=== PATIENT | female | born 1955 | race Caucasian/White ===

== ENCOUNTER 2016-10-07 07:04 | Emergency (ER) | payer BC ==
[2016-10-07] MEDS ORDERED: NORMAL SALINE 1000 ML 1,000 ML IV ONE (08:37)
[2016-10-07] MEDS ORDERED: KETOROLAC TROMETHAMINE INJ/PF 30 MG/1 ML SDV IV ONE (08:39)
[2016-10-07] MEDS ORDERED: DIPHENHYDRAMINE HCL 50 MG/ML VIAL IV ONE (08:39)
[2016-10-07] MEDS ORDERED: PROCHLORPERAZINE EDISYLATE INJ 10 MG/2 ML VIAL IV ONE (08:39)
--- NOTE | 2016-10-07 08:50 | ER Document Report ---
ED Headache - General Chief Complaint: Headache >24 hrs old Stated Complaint: HEAD PAIN Time seen by provider: 08:44 Mode of Arrival: Ambulatory Information source: Patient Notes: Extremity 1-year-old female presents to ED for migraine headache states she has had multiple migraine headaches in the past and this one has lasted 4 days. TRAVEL OUTSIDE OF THE [place] IN LAST 30 DAYS: No - HPI Patient complains to provider of: "Migraine" Patient reports: Hx chronic headaches Onset was: Gradual Timing: Still present Quality of pain: Sharp Pain Level: 5 Exacerbated by: Light, Noise, Movement, Position Similar symptoms previously: Yes Recently seen / treated by doctor: No - Related Data Allergies/Adverse Reactions: No Known Allergies Allergy (Verified 08/04/16 10:58) Past Medical History - General Information source: Patient - Social History Smoking Status: Current Every Day Smoker Cigarette use (# per day): Yes - pack per day Chew tobacco use (# tins/day): No Smoking Education Provided: Yes - acetaminophen Frequency of alcohol use: None Drug Abuse: None Occupation: housekeeping Lives with: Family Family History: Reviewed & Not Pertinent Patient has suicidal ideation: No Patient has homicidal ideation: No - Past Medical History Cardiac Medical History: Reports: None Pulmonary Medical History: Reports: None Neurological Medical History: Reports: None, Hx Migraine Endocrine Medical History: Reports: None Renal/ Medical History: Reports: None Malignancy Medical History: Reports: None GI Medical History: Reports: None, Other - Fibroid uterus Musculoskeltal Medical History: Reports Hx Arthritis Skin Medical History: Reports None Psychiatric Medical History: Reports: None Traumatic Medical History: Reports: None Past Surgical History: Reports: Hx Cholecystectomy, Hx Gynecologic Surgery - Fibroids removed from uterus - Immunizations Hx Diphtheria, Pertussis, Tetanus Vaccination: No Review of Systems - Review of Systems Constitutional: No symptoms reported EENT: No symptoms reported Cardiovascular: No symptoms reported Respiratory: No symptoms reported Gastrointestinal: No symptoms reported Genitourinary: No symptoms reported Female Genitourinary: No symptoms reported Musculoskeletal: No symptoms reported Skin: No symptoms reported Hematologic/Lymphatic: No symptoms reported Neurological/Psychological: Headaches -: Yes All other systems reviewed and negative Physical Exam - Vital signs Vitals: Temp Pulse Resp BP Pulse Ox 97.8 F 83 16 144/92 H 98 10/07/16 08:34 10/07/16 08:34 10/07/16 08:34 10/07/16 08:34 10/07/16 08:34 Interpretation: Normal - General General appearance: Appears well, Alert - HEENT Head: Normocephalic, Atraumatic Eyes: Normal Pupils: PERRL Visual whalen normal: Yes Ears: Normal External canal: Normal Tympanic membrane: Normal Sinus: Normal Nasal: Normal, Other Mouth/Lips: Normal Mucous membranes: Normal Pharynx: Normal Neck: Normal - Respiratory Respiratory status: No respiratory distress Chest status: Nontender Breath sounds: Normal Chest palpation: Normal - Cardiovascular Rhythm: Regular Heart sounds: Normal auscultation Murmur: No - Abdominal Inspection: Normal Distension: No distension Bowel sounds: Normal Tenderness: Nontender Organomegaly: No organomegaly - Back Back: Normal, Nontender - Extremities General upper extremity: Normal inspection, Nontender, Normal color, Normal ROM , Normal temperature General lower extremity: Normal inspection, Nontender, Normal color, Normal ROM , Normal temperature, Normal weight bearing. No: Analisa's sign - Neurological Neuro grossly intact: Yes Cognition: Normal Orientation: AAOx4 Heather Coma Scale Eye Opening: Spontaneous [place] Coma Scale Verbal: Oriented [place] Coma Scale Motor: Obeys Commands [place] Coma Scale Total: 15 Speech: Normal Motor strength normal: LUE, RUE, LLE, RLE Sensory: Normal - Psychological Associated symptoms: Normal affect, Normal mood - Skin Skin Temperature: Warm Skin Moisture: Dry Skin Color: Normal Course - Vital Signs Vital signs: Temp Pulse Resp BP Pulse Ox 98.1 F 54 L 18 124/60 96 10/07/16 11:24 10/07/16 11:24 10/07/16 11:24 10/07/16 11:24 10/07/16 11:24 Discharge - Discharge Clinical Impression: Headache Qualifiers: Headache type: unspecified Headache chronicity pattern: unspecified pattern Intractability: not intractable Qualified Code(s): R51 - Headache Disposition: HOME, SELF-CARE Instructions: Family Physicians / Practices Additional Instructions: HEADACHE: The physician does not feel that the headache you are experiencing has a serious underlying cause. Most headaches are due to emotional stress, with resultant muscle tension (tension headache). Occasionally, headaches are secondary to changes in the blood vessels of the scalp (vascular headache and migraine headache). Sometimes, a headache is the first symptom of another developing illness, such as a viral infection. You have no evidence of stroke, bleeding, meningitis, or other serious cause of your headache. The treatment of headaches varies with the severity and cause of the pain. Not all headaches need pain shots. In fact, there is evidence that using narcotics for headaches may make them worse in the long run. The physician will determine the therapy that's in your best interest. If you develop a fever, if the headache is different from any you've previously experienced, or if the headache progressively worsens, then call your physician at once or go to the emergency room. USE OF DIPHENHYDRAMINE: Diphenhydramine (Benadryl) is an antihistamine and has been recommended to help treat your headache and to prevent side effects of other medications used to treat headaches. The medication can be repeated four times daily. Age Elixir (12.5 mg/tsp) 25 mg pill adult 1-2 tabs Antihistamines may cause drowsiness, especially with the first dose. Do not operate machinery or drive while under the effects of the medication. Do not combine the medication with alcohol, or with any other medication without talking to your doctor. INTRAVENOUS COMPAZINE FOR HEADACHE: You have received therapy for headaches, using intravenous Compazine. This treatment is dramatically successful in relieving the headache in about 50 percent of cases. When it works, it provides a rapid method of eliminating the headache without resorting to narcotics (and the problems associated with them). Most patients still feel fully alert after the Compazine, but others may be slightly drowsy. It's best not to drive or work with machinery for six to eight hours. Do not take alcohol or other medication unless you discuss it with the doctor. If you develop tightness and spasms in your muscles, especially the neck and tongue, you should return. This is a side effect which can be treated. TORADOL INJECTION: You have been given an injection of ketorolac tromethamine (Toradol). This is an excellent, safe drug for pain control. It also has potent antiinflammatory action. You should have significant pain relief within about one hour. Toradol is not addicting and is non-sedating. It does not interfere with driving or work. Call or return if you develop itching, hives, shortness of breath, or rash. FOLLOW-UP CARE: If you have been referred to a physician for follow-up care, call the physician s office for an appointment as you were instructed or within the next two days. If you experience worsening or a significant change in your symptoms, notify the physician immediately or return to the Emergency Department at any time for re-evaluation. Prescriptions: Butalbit/Acetamin/Caff/Codeine [Fioricet-Cod 86-075-58-30 Cap] 1 cap PO Q6 PRN # 40 cap PRN Reason: Forms: Elevated Blood Pressure, Smoking Cessation Education
[2016-10-07 11:27] VITALS: BP 124/60
== END 2016-10-07 11:24 | disposition home or self-care (01) ==
LOC: ER 07:04
DX: R51 Headache (principal); F17.210 Nicotine dependence, cigarettes, uncomplicated; Z90.49 Acquired absence of other specified parts of digestive tract
CPT/HCPCS: 99283; 96361; 96374; 96375; J1200; J1885; J0780; J7030

== ENCOUNTER 2019-08-08 16:00 | Inpatient (IN) | payer SELFPAY ==
[2019-08-08] MEDS ORDERED: IPRATROPIUM/ALBUTEROL 0.5-2.5 MG/3 ML AMPUL NEB ONE ×2 (16:31→17:13)
--- NOTE | 2019-08-08 16:33 | ER Document Report ---
ED Medical Screen (RME) - General Chief Complaint: Breathing Difficulty Stated Complaint: DIFFICULTY BREATHING Time Seen by Provider: 08/08/19 16:27 Mode of Arrival: Ambulatory Information source: Patient Notes: 64-year-old patient with history of smoking presents emergency department with shortness of breath cough for 1 week. Reports back hurts from coughing so much. Denies fever vomiting. Patient is very short of breath when talking. Patient reports she gets short of breath walking outside and back. Denies peripheral swelling. Denies history of cardiac disease. Denies chest pain. Positive rhonchi and wheeze. O2 sat 89%. I have greeted and performed a rapid initial assessment of this patient. A comprehensive ED assessment and evaluation of the patient, analysis of test results and completion of the medical decision making process will be conducted by additional ED providers. Dictation of this chart was performed using voice recognition software; therefore, there may be some unintended grammatical errors. TRAVEL OUTSIDE OF THE [place] IN LAST 30 DAYS: No - Related Data Allergies/Adverse Reactions: No Known Allergies Allergy (Verified 08/04/16 10:58) Past Medical History - Social History Frequency of alcohol use: None Drug Abuse: None - Past Medical History Cardiac Medical History: Denies: Hx Heart Attack, Hx Hypertension Pulmonary Medical History: Denies: Hx Asthma, Hx Bronchitis, Hx COPD, Hx Pneumonia Neurological Medical History: Reports: Hx Migraine. Denies: Hx Seizures Renal/ Medical History: Denies: Hx Peritoneal Dialysis Musculoskeltal Medical History: Reports Hx Arthritis Past Surgical History: Reports: Hx Cholecystectomy, Hx Gynecologic Surgery - Fibroids removed from uterus - Immunizations Hx Diphtheria, Pertussis, Tetanus Vaccination: No Physical Exam - Vital signs Vitals: Temp Pulse BP Pulse Ox 97.5 F 86 154/91 H 90 L 08/08/19 16:03 08/08/19 16:03 08/08/19 16:03 08/08/19 16:03 Course - Vital Signs Vital signs: Temp Pulse Resp BP Pulse Ox 97.5 F 86 154/91 H 89 L 08/08/19 16:03 08/08/19 16:03 08/08/19 16:03 08/08/19 16:29
--- NOTE | 2019-08-08 16:57 | RADIOLOGY REPORT (SQ) ---
EXAM DESCRIPTION: CHEST 2 VIEWS COMPLETED DATE/TIME: 08/08/2019 4:44 pm REASON FOR STUDY: cough sob COMPARISON: 05/14/2010 EXAM PARAMETERS: NUMBER OF VIEWS: two views TECHNIQUE: Digital Frontal and Lateral radiographic views of the chest acquired. RADIATION DOSE: NA LIMITATIONS: none FINDINGS: LUNGS AND PLEURA: No opacities, masses or pneumothorax. No pleural effusion. MEDIASTINUM AND HILAR STRUCTURES: No masses or contour abnormalities. HEART AND VASCULAR STRUCTURES: Heart normal size. No evidence for failure. BONES: No acute findings. HARDWARE: None in the chest. OTHER: No other significant finding. IMPRESSION: NO ACUTE RADIOGRAPHIC FINDING IN THE CHEST. TECHNICAL DOCUMENTATION: JOB ID: [id number] [employer]- All Rights Reserved Reading location - IP/workstation name: [email or web address]
[2019-08-08] MEDS ORDERED: METHYLPREDNISOLONE INJ 125 MG/2 ML SDV IV ONE (17:13)
[2019-08-08 17:30] LABS: ABSOLUTE EOSINOPHILS # (AUTO) 0.3 10^3/uL (0.0-0.6); ABSOLUTE MONOCYTES (AUTO) 0.5 10^3/uL (0.1-1.4); ABSOLUTE NEUT (AUTO) 4.6 10^3/uL (1.7-8.2); BASOPHILS % (AUTO) 0.6 % (0-2); EOSINOPHILS % (AUTO) 4.1 % (0-6); HEMATOCRIT 44.1 % (36.0-47.0); LYMPHOCYTES % (AUTO) 27.5 % (13-45); MEAN CORPUSCULAR HEMOGLOBIN 30.5 pg (27.0-33.4); MEAN CORPUSCULAR VOLUME 90 fl (80-97); MONOCYTES % (AUTO) 6.2 % (3-13); PLATELET COUNT 341 10^3/uL (150-450); RED BLOOD COUNT 4.92 10^6/uL (3.72-5.28); RED CELL DISTRIBUTION WIDTH 13.2 % (11.5-14.0); SEGMENTED NEUTROPHILS % (AUTO) 61.6 % (42-78); TOTAL CELLS COUNTED % (AUTO) 100 %; WHITE BLOOD COUNT 7.4 10^3/uL (4.0-10.5)
[2019-08-08 17:48] LABS: ALBUMIN 4.6 g/dL (3.5-5.0); ALKALINE PHOSPHATASE 110 U/L (38-126); ANION GAP 13 (5-19); ASPARTATE AMINO TRANSFERASE 31 U/L (14-36); BILIRUBIN,DIRECT 0.1 mg/dL (0.0-0.4); BILIRUBIN,TOTAL 0.3 mg/dL (0.2-1.3); BLOOD UREA NITROGEN 14 mg/dL (7-20); CALCIUM 9.9 mg/dL (8.4-10.2); CARBON DIOXIDE 24 mmol/L (22-30); CHLORIDE 107 mmol/L (98-107); GLUCOSE 102 mg/dL (75-110); POTASSIUM 4.2 mmol/L (3.6-5.0); TOTAL PROTEIN 8.3 g/dL (6.3-8.2)
[2019-08-08] MEDS ORDERED: ALBUTEROL SULFATE 0.083% NEB 2.5 MG/3 ML AMPUL NEB ONE ×2 (19:44)
--- NOTE | 2019-08-08 20:18 | ER Document Report ---
ED General - General Chief Complaint: Breathing Difficulty Stated Complaint: DIFFICULTY BREATHING Time Seen by Provider: 08/08/19 16:27 Mode of Arrival: Ambulatory Notes: 64 year old female presents to the ED complaining of a one-week history of productive cough, shortness of breath, wheezing, sweats and chills and diarrhea with associated abdominal cramping. Denies any chest pain. States that she is never had symptoms like this before. Denies any history of COPD or asthma. Her grandson that she saw 1 week ago at a wedding 7 hours away had identical symptoms. TRAVEL OUTSIDE OF THE [place] IN LAST 30 DAYS: No - Related Data Allergies/Adverse Reactions: No Known Allergies Allergy (Verified 08/04/16 10:58) Past Medical History - General Information source: Patient - Social History Smoking Status: Current Every Day Smoker Frequency of alcohol use: None Drug Abuse: None Family History: Reviewed & Not Pertinent Patient has suicidal ideation: No Patient has homicidal ideation: No - Past Medical History Cardiac Medical History: Denies: Hx Heart Attack, Hx Hypertension Pulmonary Medical History: Denies: Hx Asthma, Hx Bronchitis, Hx COPD, Hx Pneumonia Neurological Medical History: Reports: Hx Migraine. Denies: Hx Seizures Renal/ Medical History: Denies: Hx Peritoneal Dialysis Musculoskeletal Medical History: Reports Hx Arthritis Past Surgical History: Reports: Hx Cholecystectomy, Hx Gynecologic Surgery - Fibroids removed from uterus - Immunizations Hx Diphtheria, Pertussis, Tetanus Vaccination: No Review of Systems - Review of Systems Constitutional: See HPI EENT: No symptoms reported Cardiovascular: No symptoms reported Respiratory: See HPI Gastrointestinal: See HPI -: Yes All other systems reviewed and negative Physical Exam - Vital signs Vitals: Temp Pulse BP Pulse Ox 97.5 F 86 154/91 H 90 L 08/08/19 16:03 08/08/19 16:03 08/08/19 16:03 08/08/19 16:03 Interpretation: Hypertensive, Hypoxic - Notes Notes: GENERAL: Alert, interacts well. Speaking in 4-5 word sentences, appears short of breath, using some accessory muscles of respiration. HEAD: Normocephalic, atraumatic EYES: Pupils equal, round and reactive to light, extraocular movements intact. ENT: Oral mucosa moist, tongue midline. NECK: Full range of motion, supple, trachea midline. LUNGS: Diffuse expiratory wheezing, some inspiratory wheezing, tachypneic, appears short of breath, using accessory muscles of respiration. HEART: Regular rate and rhythm, no murmurs, gallops, rubs. ABDOMEN: Soft, nontender, nondistended, bowel sounds present in all 4 quadrants. EXTREMITIES: Moves all 4 extremities spontaneously, no edema, radial and dorsalis pedis pulses 2/4 bilaterally. No cyanosis. NEUROLOGICAL: Alert and oriented x3, normal speech, biceps and patellar DTRs 2+ bilaterally. PSYCH: Normal mood, normal affect. SKIN: Warm, Dry, normal turgor, no rashes or lesions noted. Course - Re-evaluation Re-evalutation: 08/08/19 20:24 CBC unremarkable, CMP unremarkable, chest x-ray shows no acute process. Patient was given steroids and 3 DuoNeb's. Patient continues to be hypoxic, on room air she is 89%, on 2 L she sits at 92% unless she is talking. I will try 2 more doses of albuterol and if this does not improve she will be admitted. 08/08/19 21:19 After 2 more doses of albuterol patient still requires 4 L via nasal cannula to maintain oxygen saturation at 91% while sitting in the bed. She still has coarse breath sounds and mild wheezing. She does have some improvement. Patient will be started on BiPAP and discussed with the hospitalist for possible admission. Patient has already been given steroids. 08/08/19 21:39 Dr. Powers will call me back as he is in the middle of emergent patient care at this time. 08/08/19 21:59 Dr. Powers has accepted the patient under his orders I have adjusted the BiPAP to 16/8 at 30%. Patient is tolerating this well. - Vital Signs Vital signs: Temp Pulse Resp BP Pulse Ox 98.4 F 86 21 H 129/68 H 92 08/08/19 19:51 08/08/19 16:03 08/08/19 20:01 08/08/19 20:01 08/08/19 20:01 - Laboratory Result Diagrams: 08/08/19 17:01 08/08/19 17:01 Laboratory results interpreted by me: 08/08/19 17:01 Total Protein 8.3 H Critical Care Note - Critical Care Note Total time excluding time spent on procedures (mins): 45 Discharge - Discharge Clinical Impression: Acute respiratory failure with hypoxia Condition: Fair Disposition: ADMITTED INPATIENT Admitting Provider: Priya (Hospitalist) Unit Admitted: Medical Floor
[2019-08-08] MEDS: HEPARIN SOD (PORCINE) 5,000 UNIT/ML 1 ML VIAL SUBCUT SCH (22:31)
[2019-08-08] MEDS ORDERED: LEVALBUTEROL HCL NEB 0.63 MG/3 ML AMPUL NEB PRN (22:34)
[2019-08-08] MEDS ORDERED: NALBUPHINE HCL INJ 10 MG/1 ML AMPULE IV PRN ×3 (22:34→22:47)
[2019-08-08] MEDS ORDERED: NICOTINE 21 MG/24 HR PATCH.TD24 TD PRN (22:34)
[2019-08-08] MEDS ORDERED: IBUPROFEN 800 MG TABLET PO PRN (22:34)
[2019-08-08] MEDS ORDERED: MAGNESIUM HYDROXIDE SUSP 30 ML UDCUP PO PRN (22:34)
[2019-08-08] MEDS ORDERED: MAG HYDROX/AL HYDROX/SIMETH SUSP 30 ML UDCUP PO PRN (22:34)
[2019-08-08] MEDS ORDERED: LEVOFLOXACIN 750 MG TABLET PO SCH (22:36)
[2019-08-08] MEDS ORDERED: PROMETHAZINE HCL INJ 25 MG/1 ML VIAL IV PRN (22:38)
[2019-08-08] MEDS ORDERED: ZOLPIDEM TARTRATE 5 MG TABLET PO PRN (22:38)
[2019-08-08] MEDS ORDERED: FAMOTIDINE 20 MG TABLET PO SCH (22:45)
[2019-08-08] MEDS ORDERED: LEVOFLOXACIN 750 MG TABLET PO ONE (23:10)
[2019-08-08] MEDS ORDERED: FAMOTIDINE 20 MG TABLET PO ONE (23:15)
[2019-08-09] MEDS: LEVALBUTEROL HCL NEB 1.25 MG/3 ML AMPUL NEB SCH ×4 (00:15→23:42)
[2019-08-09] MEDS: IPRATROPIUM BROMIDE 0.02% NEB 0.5 MG/2.5 ML AMPUL NEB SCH ×4 (00:15→23:42)
[2019-08-09] MEDS: METHYLPREDNISOLONE INJ 40 MG/1 ML SDV IV SCH ×3 (00:32→13:04)
--- NOTE | 2019-08-09 01:44 | PDOC H&P ---
History of Present Illness Admission Date/PCP: 08/08/2019 22:00 No local PCP Patient complains of: Dyspnea History of Present Illness: MORRIS ROSALES is a 64 year old female who presented to the emergency room with a one-week history of dyspnea. Patient reports progressively worsening dyspnea over the last week that has become severe over the last 24 hours to the point where she has difficulty speaking due to her dyspnea. Her dyspnea has been accompanied by a frequent nonproductive/minimally productive paroxysmal cough, back pain secondary to cough, wheezing, markedly increased dyspnea with diaphoresis on exertion and episodes of chills. She admits he accompanying symptom of intermittent diarrhea with abdominal cramping over the last several days. She denies other associated or accompanying signs and symptoms. She denies prior similar episodes. She has not identified any additional aggravating or ameliorating factors for her dyspnea. In the emergency room she was noted to have an O2 sat of 89% and markedly increased work of breathing resulting in her being treated with BiPAP. The entirety of her laboratory and x-ray evaluation evaluation was unremarkable. She was subsequently admitted to the hospital for further evaluation and treatment. Past Medical History Cardiac Medical History: Denies: Atrial Fibrillation, Congestive Heart Failure, Coronary Artery Disease, DVT, Myocardial Infarction, Hyperlipidema, Hypertension, Pulmonary Embolism Pulmonary Medical History: Denies: Asthma, Bronchitis, Chronic Obstructive Pulmonary Disease (COPD), Pneumonia, Respiratory Failure EENT Medical History: Denies: Cataracts, Ears - Hearing aids, Nose - Allergic rhinitis Neurological Medical History: Reports: Migraine Denies: Hemorrhagic CVA, Ischemic CVA, Seizures Endocrine Medical History: Reports: Obesity Denies: Diabetes Mellitus Type 1, Diabetes Mellitus Type 2, Hyperthyroidism, Hypothyroidism Renal/ Medical History: Denies: Chronic Kidney Disease, Nephrolithiasis Malignancy Medical History: Reports: None GI Medical History: Denies: Cirrhosis, Crohn's Disease, Hepatitis, Ulcerative Colitis Musculoskeltal Medical History: Reports: Arthritis Denies: Fibromyalgia, Gout Skin Medical History: Denies: Eczema, Psoriasis Psychiatric Medical History: Reports: Tobacco Dependency Denies: Alcohol Dependency, Substance Abuse Traumatic Medical History: Reports: None Hematology: Denies: Anemia, Bleeding Tendencies Infectious Medical History: Reports: None Past Surgical History Past Surgical History: Reports: Cholecystectomy Social History Information Source: Patient Smoking Status: Current Every Day Smoker Electronic Cigarette use?: No Frequency of Alcohol Use: None Hx Recreational Drug Use: No Drugs: None Hx Prescription Drug Abuse: No - Advance Directive Resuscitation Status: Full Code Surrogate healthcare decision maker:: Marcos Rosales Family History Family History: DM, Hypertension, Malignancy, Other - Asthma. denies: CAD Parental Family History Reviewed: Yes Children Family History Reviewed: No Sibling(s) Family History Reviewed.: Yes Medication/Allergy Home Medications: No Home Medications 1 09/15/12 Butalbit/Acetamin/Caff/Codeine [Fioricet-Cod 68-013-63-30 Cap] 1 cap PO Q6 PRN #40 cap 10/07/16 Allergies/Adverse Reactions: No Known Allergies Allergy (Verified 08/04/16 10:58) Review of Systems Constitutional: PRESENT: as per HPI, chills. ABSENT: fever(s) Eyes: ABSENT: visual disturbances, other - Eye pain Ears: ABSENT: hearing changes, other - Ear pain Nose, Mouth, and Throat: ABSENT: headache(s), mouth pain, sore throat Cardiovascular: PRESENT: as per HPI, dyspnea on exertion. ABSENT: chest pain, edema, orthropnea, palpitations Respiratory: PRESENT: as per HPI, cough, dyspnea, sputum. ABSENT: hemoptysis Gastrointestinal: PRESENT: as per HPI, abdominal pain, diarrhea. ABSENT: constipation, nausea, vomiting Genitourinary: ABSENT: dysuria, hematuria Musculoskeletal: PRESENT: as per HPI, back pain. ABSENT: joint swelling, muscle weakness Integumentary: ABSENT: pruritus, rash Neurological: ABSENT: confusion, convulsions, focal weakness, memory loss, syncope Psychiatric: ABSENT: anxiety, depression Endocrine: ABSENT: cold intolerance, heat intolerance Hematologic/Lymphatic: ABSENT: easy bleeding, easy bruising Allergic/Immunologic: ABSENT: seasonal rhinorrhea Physical Exam Vital Signs: Temp Pulse Resp BP Pulse Ox 98.4 F 86 21 H 129/68 H 92 08/08/19 19:51 08/08/19 16:03 08/08/19 20:01 08/08/19 20:01 08/08/19 20:01 Intake & Output 08/06/19 08/07/19 08/08/19 23:59 23:59 23:59 Weight 99.6 kg General appearance: PRESENT: no acute distress, cooperative, obese, other - On BiPAP Head exam: PRESENT: atraumatic, normocephalic Eye exam: PRESENT: conjunctiva pink. ABSENT: conjunctival injection, scleral icterus Ear exam: PRESENT: normal external ear exam. ABSENT: bleeding, drainage Mouth exam: PRESENT: dry mucosa, neck supple Neck exam: ABSENT: thyromegaly, tracheal deviation Respiratory exam: PRESENT: decreased breath sounds - Mildly decreased breath sounds throughout all whalen, prolonged expiratory phas - Mildly prolonged expiratory phase in all whalen, rhonchi - Scattered coarse rhonchi in all whalen, symmetrical, wheezes - Moderate expiratory wheezing, other - On BiPAP. ABSENT: rales Cardiovascular exam: PRESENT: RRR. ABSENT: clicks, gallop, rubs Pulses: PRESENT: normal radial pulses, normal dorsalis pedis pul Vascular exam: PRESENT: normal capillary refill. ABSENT: pallor GI/Abdominal exam: PRESENT: normal bowel sounds, soft Rectal exam: PRESENT: deferred Extremities exam: ABSENT: joint swelling, pedal edema Musculoskeletal exam: ABSENT: deformity, dislocation Neurological exam: PRESENT: alert, oriented to person, oriented to place, oriented to time, oriented to situation, CN II-XII grossly intact. ABSENT: motor sensory deficit Psychiatric exam: PRESENT: appropriate affect, normal mood Skin exam: PRESENT: dry, intact, warm. ABSENT: jaundice, rash, urticaria Results Laboratory Results: 08/08/19 17:01 08/08/19 17:01 08/08/19 08/08/19 17:01 17:01 WBC 7.4 RBC 4.92 Hgb 15.0 Hct 44.1 MCV 90 MCH 30.5 MCHC 34.0 RDW 13.2 Plt Count 341 Seg Neutrophils % 61.6 Sodium 143.6 Potassium 4.2 Chloride 107 Carbon Dioxide 24 Anion Gap 13 BUN 14 Creatinine 0.78 Est GFR ( Amer) > 60 Glucose 102 Calcium 9.9 Total Bilirubin 0.3 AST 31 Alkaline Phosphatase 110 Total Protein 8.3 H Albumin 4.6 Impressions: Chest X-Ray 08/08/19 16:31 IMPRESSION: NO ACUTE RADIOGRAPHIC FINDING IN THE CHEST. Assessment and Plan - Diagnosis (1) Acute exacerbation of chronic obstructive airways disease Is this a current diagnosis for this admission?: Yes (2) Acute respiratory failure with hypoxia Is this a current diagnosis for this admission?: Yes (3) Back pain Qualifiers: Chronicity: acute Back pain laterality: unspecified Sciatica presence: without sciatica Is this a current diagnosis for this admission?: Yes (4) Cough Is this a current diagnosis for this admission?: Yes (5) Obesity (BMI 30-39.9) Is this a current diagnosis for this admission?: Yes (6) Tobacco use disorder, severe, dependence Is this a current diagnosis for this admission?: Yes - Plan Summary Summary: The patient is admitted to the medical floor where she will receive the usual symptomatic and supportive cares. She will be treated with an aggressive pulmonary toilet utilizing Xopenex, Atrovent and Pulmicort delivered via nebuli zer therapy. She will receive a short course of IV steroids utilizing Solu- Medrol. She will receive supplemental oxygen initially using BiPAP to maintain an adequate O2 saturation. Her back pain will be treated with Nubain 5 to 10 mg IV every 3 hours on an as-needed basis using a sliding scale for pain. A dietary consultation will be obtained to aid the patient in an appropriate diet for weight loss. Smoking cessation is advised and counseled briefly at the bedside. A nicotine replacement patch is available for the patient's use, if desired. Her cough will be treated with Robitussin on a as needed basis. - Time Time Spent with patient: 25-34 minutes Smoking Cessation Education: 3 to 10 minutes Medications reviewed and adjusted accordingly: Yes Anticipated discharge: Home - Inpatient Certification Based on my medical assessment, after consideration of the patient's comorbidities, presenting symptoms, or acuity I expect that the services needed warrant INPATIENT care.: Yes I certify that my determination is in accordance with my understanding of Medicare's requirements for reasonable and necessary INPATIENT services [42 CFR 412.3e].: Yes Medical Necessity: Need Close Monitoring Due to Risk of Patient Decompensation, Need for Nebulizer Therapy and Monitoring of Response, Need for Pain Control, Risk of Complication if Not Cared For in Hospital
[2019-08-09] MEDS: ACETAMINOPHEN 325 MG TABLET PO PRN ×2 (02:19→21:01)
[2019-08-09] MEDS: HEPARIN SOD (PORCINE) 5,000 UNIT/ML 1 ML VIAL SUBCUT SCH ×3 (05:16→21:02)
[2019-08-09 05:41] LABS: HEMOGLOBIN 13.5 g/dL (12.0-15.5); MEAN CORPUSCULAR HGB CONC 34.7 g/dL (32.0-36.0); MEAN CORPUSCULAR VOLUME 89 fl (80-97); PLATELET COUNT 314 10^3/uL (150-450); RED BLOOD COUNT 4.36 10^6/uL (3.72-5.28); RED CELL DISTRIBUTION WIDTH 13.2 % (11.5-14.0); WHITE BLOOD COUNT 6.9 10^3/uL (4.0-10.5)
[2019-08-09 06:11] LABS: ANION GAP 17 (5-19); BLOOD UREA NITROGEN 12 mg/dL (7-20); CALCIUM 9.5 mg/dL (8.4-10.2); CARBON DIOXIDE 20 mmol/L (22-30); CHLORIDE 106 mmol/L (98-107); GLUCOSE 162 mg/dL (75-110); POTASSIUM 3.8 mmol/L (3.6-5.0)
--- NOTE | 2019-08-09 07:40 | EKG REPORT ---
SEVERITY:- BORDERLINE ECG - SINUS RHYTHM BORDERLINE INFERIOR Q WAVES : Confirmed by: Mati Smith MD 09-Aug-2019 07:39:21
[2019-08-09] MEDS: BUDESONIDE NEB 0.5 MG/2 ML AMPUL NEB SCH ×2 (08:09→20:45)
[2019-08-09] MEDS: FAMOTIDINE 20 MG TABLET PO SCH ×2 (09:55→21:02)
[2019-08-09] MEDS: DOCUSATE SODIUM 100 MG CAPSULE PO SCH ×2 (09:55→17:33)
[2019-08-09 12:26] LABS: FREE T3 2.73 pg/mL (2.77-5.27); FREE T4 (FREE THYROXINE) 1.1 ng/dL (0.78-2.19)
--- NOTE | 2019-08-09 17:05 | PDOC PROGRESS REPORT ---
Subjective Progress Note for:: 08/09/19 Subjective:: This is a 65-year-old female who presented to [facility]. She was noted to be hypoxic on presentation. She was reportedly having bilateral wheezing. She was admitted and treated for possible COPD exacerbation. She denies a prior diagnosis of COPD but does admit to smoking at least a pack a day for more than 30 years. She was placed on BiPAP. Upon encounter, patient is saturating well on BiPAP. She says that her shortness of breath has improved. She has minimal wheezing bilaterally. She denies chest pain. Reason For Visit: ACUTE EXACERBATION OF COPD,ACUTE RESPIRATORY Physical Exam Vital Signs: Temp Pulse Resp BP Pulse Ox 97.9 F 68 20 150/85 H 93 08/09/19 05:15 08/09/19 08:13 08/09/19 16:01 08/09/19 16:01 08/09/19 16:01 Intake & Output 08/08/19 08/09/19 08/10/19 06:59 06:59 06:59 Weight 219 lb 9.286 oz General appearance: PRESENT: no acute distress, well-developed, well-nourished Head exam: PRESENT: atraumatic, normocephalic Eye exam: PRESENT: conjunctiva pink, EOMI, PERRLA. ABSENT: scleral icterus Ear exam: PRESENT: normal external ear exam Mouth exam: PRESENT: moist, tongue midline Neck exam: ABSENT: carotid bruit, JVD, lymphadenopathy, thyromegaly Respiratory exam: PRESENT: rhonchi, wheezes. ABSENT: rales Cardiovascular exam: PRESENT: RRR. ABSENT: diastolic murmur, rubs, systolic murmur Pulses: PRESENT: normal dorsalis pedis pul GI/Abdominal exam: PRESENT: normal bowel sounds, soft. ABSENT: distended, guarding, mass, organolmegaly, rebound, tenderness Rectal exam: PRESENT: deferred Extremities exam: PRESENT: full ROM. ABSENT: calf tenderness, clubbing, pedal edema Neurological exam: PRESENT: alert, awake, oriented to person, oriented to place, oriented to time, oriented to situation, CN II-XII grossly intact. ABSENT: motor sensory deficit Results Laboratory Results: 08/09/19 04:11 08/09/19 04:11 08/08/19 08/08/19 08/09/19 17:01 17:01 04:11 WBC 7.4 6.9 RBC 4.92 4.36 Hgb 15.0 13.5 Hct 44.1 39.0 MCV 90 89 MCH 30.5 31.0 MCHC 34.0 34.7 RDW 13.2 13.2 Plt Count 341 314 Seg Neutrophils % 61.6 Sodium 143.6 Potassium 4.2 Chloride 107 Carbon Dioxide 24 Anion Gap 13 BUN 14 Creatinine 0.78 Est GFR ( Amer) > 60 Glucose 102 Calcium 9.9 Total Bilirubin 0.3 AST 31 Alkaline Phosphatase 110 Total Protein 8.3 H Albumin 4.6 TSH Free T4 Free T3 pg/mL 08/09/19 08/09/19 08/09/19 04:11 04:11 04:11 WBC RBC Hgb Hct MCV MCH MCHC RDW Plt Count Seg Neutrophils % Sodium 142.6 Potassium 3.8 Chloride 106 Carbon Dioxide 20 L Anion Gap 17 BUN 12 Creatinine 0.70 Est GFR ( Amer) > 60 Glucose 162 H Calcium 9.5 Total Bilirubin AST Alkaline Phosphatase Total Protein Albumin TSH 0.27 L Free T4 1.10 Free T3 pg/mL 2.73 L Impressions: Chest X-Ray 08/08/19 16:31 IMPRESSION: NO ACUTE RADIOGRAPHIC FINDING IN THE CHEST. Assessment and Plan - Diagnosis (1) Acute respiratory failure with hypoxia Is this a current diagnosis for this admission?: Yes Plan: Currently on BiPAP. (2) Acute exacerbation of chronic obstructive airways disease Is this a current diagnosis for this admission?: Yes Plan: Presumed to be secondary to undiagnosed COPD. Continue steroids and breathing treatments for now. Currently on BiPAP. Will pursue a VQ scan as well. (3) Tobacco use disorder, severe, dependence Is this a current diagnosis for this admission?: Yes Plan: Counseled in length about smoking cessation. - Time Time Spent with patient: 25-34 minutes
--- NOTE | 2019-08-09 19:30 | RADIOLOGY REPORT (SQ) ---
EXAM DESCRIPTION: NM LUNG VENT/PERF SCAN COMPLETED DATE/TIME: 08/09/2019 6:41 pm REASON FOR STUDY: SOB, hypoxia COMPARISON: None. RADIONUCLIDE AND DOSE: 5 millicuries TC-99m MAA Intravenous 30 millicuries TC-99m DTPA Inhaled aerosol TECHNIQUE: Eight views of the lungs acquired post ventilation of DTPA aerosol. Eight matching views of the lungs acquired following injection of MAA. LIMITATIONS: None. FINDINGS: VENTILATION: Ventilation is heterogeneous. There are some areas of clumping in the larger airways. PERFUSION: Perfusion images with normal homogenous activity and no wedge-shaped or segmental defects. No ventilation-perfusion mismatches. OTHER: No other significant finding. IMPRESSION: NORMAL VENTILATION-PERFUSION LUNG SCAN. NEGATIVE FOR PULMONARY EMBOLI. TECHNICAL DOCUMENTATION: JOB ID: [id number] [employer]- All Rights Reserved Reading location - IP/workstation name: [email or web address]
[2019-08-09] MEDS: LEVOFLOXACIN 750 MG TABLET PO SCH (21:02)
[2019-08-10] MEDS: HEPARIN SOD (PORCINE) 5,000 UNIT/ML 1 ML VIAL SUBCUT SCH ×3 (05:41→21:16)
[2019-08-10 06:03] LABS: HEMATOCRIT 39.5 % (36.0-47.0); HEMOGLOBIN 13.6 g/dL (12.0-15.5); MEAN CORPUSCULAR HEMOGLOBIN 30.9 pg (27.0-33.4); MEAN CORPUSCULAR HGB CONC 34.5 g/dL (32.0-36.0); MEAN CORPUSCULAR VOLUME 90 fl (80-97); PLATELET COUNT 327 10^3/uL (150-450); RED BLOOD COUNT 4.41 10^6/uL (3.72-5.28); RED CELL DISTRIBUTION WIDTH 13.8 % (11.5-14.0); WHITE BLOOD COUNT 14.7 10^3/uL (4.0-10.5)
[2019-08-10 06:18] LABS: ANION GAP 9 (5-19); BLOOD UREA NITROGEN 20 mg/dL (7-20); CARBON DIOXIDE 28 mmol/L (22-30); CHLORIDE 105 mmol/L (98-107); GLUCOSE 100 mg/dL (75-110); POTASSIUM 4.2 mmol/L (3.6-5.0)
[2019-08-10] MEDS: IPRATROPIUM BROMIDE 0.02% NEB 0.5 MG/2.5 ML AMPUL NEB SCH ×2 (08:43→16:12)
[2019-08-10] MEDS: BUDESONIDE NEB 0.5 MG/2 ML AMPUL NEB SCH ×2 (08:44→20:26)
[2019-08-10] MEDS: LEVALBUTEROL HCL NEB 1.25 MG/3 ML AMPUL NEB SCH ×2 (08:44→16:12)
[2019-08-10] MEDS: DOCUSATE SODIUM 100 MG CAPSULE PO SCH ×2 (09:45→18:16)
[2019-08-10] MEDS: FAMOTIDINE 20 MG TABLET PO SCH ×2 (09:45→21:16)
[2019-08-10] MEDS: ACETAMINOPHEN 325 MG TABLET PO PRN (09:46)
--- NOTE | 2019-08-10 15:03 | PDOC PROGRESS REPORT ---
Subjective Progress Note for:: 08/10/19 Subjective:: This is a 65-year-old female who presented to [facility]. She was noted to be hypoxic on presentation. She was reportedly having bilateral wheezing. She was admitted and treated for possible COPD exacerbation. She denies a prior diagnosis of COPD but does admit to smoking at least a pack a day for more than 30 years. She was placed on BiPAP. 08/09: Upon encounter, patient is saturating well on BiPAP. She says that her shortness of breath has improved. She has minimal wheezing bilaterally. She denies chest pain. 08/10: No acute event overnight. Patient has been weaned off BiPAP. She says her shortness of breath has significantly improved. Bilateral wheezing has improved on examination. She denies chest pain. Reason For Visit: ACUTE EXACERBATION OF COPD,ACUTE RESPIRATORY Physical Exam Vital Signs: Temp Pulse Resp BP Pulse Ox 98.4 F 78 22 H 145/82 H 92 08/10/19 12:00 08/10/19 12:00 08/10/19 12:00 08/10/19 12:00 08/10/19 12:00 Intake & Output 08/09/19 08/10/19 08/11/19 06:59 06:59 06:59 Intake Total 1015 Balance 1015 Weight 219 lb 9.286 oz 223 lb 5.252 oz General appearance: PRESENT: no acute distress, well-developed, well-nourished Head exam: PRESENT: atraumatic, normocephalic Eye exam: PRESENT: conjunctiva pink, EOMI, PERRLA. ABSENT: scleral icterus Ear exam: PRESENT: normal external ear exam Mouth exam: PRESENT: moist, tongue midline Neck exam: ABSENT: carotid bruit, JVD, lymphadenopathy, thyromegaly Respiratory exam: PRESENT: wheezes. ABSENT: rales, rhonchi Cardiovascular exam: PRESENT: RRR. ABSENT: diastolic murmur, rubs, systolic murmur Pulses: PRESENT: normal dorsalis pedis pul GI/Abdominal exam: PRESENT: normal bowel sounds, soft. ABSENT: distended, guarding, mass, organolmegaly, rebound, tenderness Rectal exam: PRESENT: deferred Extremities exam: PRESENT: full ROM. ABSENT: calf tenderness, clubbing, pedal edema Neurological exam: PRESENT: alert, awake, oriented to person, oriented to place, oriented to time, oriented to situation, CN II-XII grossly intact. ABSENT: motor sensory deficit Results Laboratory Results: 08/10/19 05:38 08/10/19 05:38 08/10/19 08/10/19 05:38 05:38 WBC 14.7 H D RBC 4.41 Hgb 13.6 Hct 39.5 MCV 90 MCH 30.9 MCHC 34.5 RDW 13.8 Plt Count 327 Sodium 142.1 Potassium 4.2 Chloride 105 Carbon Dioxide 28 Anion Gap 9 BUN 20 Creatinine 0.87 Est GFR ( Amer) > 60 Glucose 100 Calcium 10.0 Impressions: Chest X-Ray 08/08/19 16:31 IMPRESSION: NO ACUTE RADIOGRAPHIC FINDING IN THE CHEST. Lung Scan-VQ NM 08/09/19 17:01 IMPRESSION: NORMAL VENTILATION-PERFUSION LUNG SCAN. NEGATIVE FOR PULMONARY EMBOLI. Assessment and Plan - Diagnosis (1) Acute respiratory failure with hypoxia Is this a current diagnosis for this admission?: Yes Plan: Secondary to COPD exacerbation. Weaned off BiPAP. (2) Acute exacerbation of chronic obstructive airways disease Is this a current diagnosis for this admission?: Yes Plan: Continue steroids and breathing treatments for now. (3) Tobacco use disorder, severe, dependence Is this a current diagnosis for this admission?: Yes Plan: Counseled in length about smoking cessation. - Time Time Spent with patient: 25-34 minutes
[2019-08-10] MEDS: PREDNISONE 20 MG TABLET PO SCH (18:16)
[2019-08-10] MEDS: LEVOFLOXACIN 750 MG TABLET PO SCH (21:16)
[2019-08-11] MEDS: LEVALBUTEROL HCL NEB 1.25 MG/3 ML AMPUL NEB SCH ×2 (00:36→07:38)
[2019-08-11] MEDS: IPRATROPIUM BROMIDE 0.02% NEB 0.5 MG/2.5 ML AMPUL NEB SCH ×2 (00:36→07:38)
[2019-08-11] MEDS: ACETAMINOPHEN 325 MG TABLET PO PRN (01:12)
[2019-08-11] MEDS: HEPARIN SOD (PORCINE) 5,000 UNIT/ML 1 ML VIAL SUBCUT SCH ×2 (05:17→13:58)
[2019-08-11 05:59] LABS: HEMATOCRIT 39.9 % (36.0-47.0); HEMOGLOBIN 13.6 g/dL (12.0-15.5); MEAN CORPUSCULAR HEMOGLOBIN 30.8 pg (27.0-33.4); MEAN CORPUSCULAR HGB CONC 34.2 g/dL (32.0-36.0); MEAN CORPUSCULAR VOLUME 90 fl (80-97); PLATELET COUNT 331 10^3/uL (150-450); RED BLOOD COUNT 4.43 10^6/uL (3.72-5.28); RED CELL DISTRIBUTION WIDTH 13.5 % (11.5-14.0); WHITE BLOOD COUNT 8.2 10^3/uL (4.0-10.5)
[2019-08-11 06:26] LABS: ANION GAP 12 (5-19); BLOOD UREA NITROGEN 24 mg/dL (7-20); CALCIUM 9.9 mg/dL (8.4-10.2); CARBON DIOXIDE 27 mmol/L (22-30); CHLORIDE 103 mmol/L (98-107); GLUCOSE 114 mg/dL (75-110); POTASSIUM 4.4 mmol/L (3.6-5.0)
[2019-08-11] MEDS: BUDESONIDE NEB 0.5 MG/2 ML AMPUL NEB SCH (07:38)
[2019-08-11] MEDS: DOCUSATE SODIUM 100 MG CAPSULE PO SCH (09:14)
[2019-08-11] MEDS: FAMOTIDINE 20 MG TABLET PO SCH (09:15)
[2019-08-11] MEDS: PREDNISONE 20 MG TABLET PO SCH (09:15)
[2019-08-11 13:16] VITALS: BP 171/85
--- NOTE | 2019-08-11 15:29 | PDOC DISCHARGE SUMMARY ---
Impression - Admit/DC Date/PCP Admission Date/Primary Care Provider: 08/08/19 22:12 Discharge Date: 08/11/19 - Discharge Diagnosis (1) Acute respiratory failure with hypoxia Is this a current diagnosis for this admission?: Yes (2) Acute exacerbation of chronic obstructive airways disease Is this a current diagnosis for this admission?: Yes (3) Tobacco use disorder, severe, dependence Is this a current diagnosis for this admission?: Yes - Additional Information Resuscitation Status: Full Code Discharge Diet: Regular Discharge Activity: Activity As Tolerated Referrals: [facility] [Outside] - 08/22/19 11:30 am (THE CLINIC WILL SET YOU UP WITH A EXTRUDER OPERATOR FROM [facility]) Prescriptions: Fluticasone/Salmeterol [Advair HFA 115-21 mcg Inhaler] 1 puff IH Q12 #1 mdi Prednisone [Deltasone 20 mg Tablet] 20 mg PO BID 5 Days #10 tablet Ipratropium/Albuterol Sulfate [Duoneb 3 ml Ampul] 3 ml NEB Q6HP PRN #30 vial.neb PRN Reason: for SOB or wheezing Nicotine [Nicoderm 21 mg/24 Hr Transderm Patch] 1 each TD DAILYP PRN #30 patch.td24 PRN Reason: Lisinopril [Prinivil 5 mg Tablet] 5 mg PO DAILY 30 Days #30 tablet Tiotropium [place] [Spiriva Respimat] 4 gm IH DAILY #30 mist.inhal Home Medications: Fluticasone/Salmeterol [Advair HFA 115-21 mcg Inhaler] 1 puff IH Q12 #1 mdi 08/11/19 Ipratropium/Albuterol Sulfate [Duoneb 3 ml Ampul] 3 ml NEB Q6HP PRN #30 vial.neb 08/11/19 Lisinopril [Prinivil 5 mg Tablet] 5 mg PO DAILY 30 Days #30 tablet 08/11/19 Nicotine [Nicoderm 21 mg/24 Hr Transderm Patch] 1 each TD DAILYP PRN #30 patch.td24 08/11/19 Prednisone [Deltasone 20 mg Tablet] 20 mg PO BID 5 Days #10 tablet 08/11/19 Tiotropium [place] [Spiriva Respimat] 4 gm IH DAILY #30 mist.inhal 08/11/19 History of Present Illiness History of Present Illness: Admitting hospitalist's H&P: MORRIS ROSALES is a 64 year old female who presented to the emergency room with a one-week history of dyspnea. Patient reports progressively worsening dyspnea over the last week that has become severe over the last 24 hours to the point where she has difficulty speaking due to her dyspnea. Her dyspnea has been accompanied by a frequent nonproductive/minimally productive paroxysmal cough, back pain secondary to cough, wheezing, markedly increased dyspnea with diaphoresis on exertion and episodes of chills. She admits he accompanying symptom of intermittent diarrhea with abdominal cramping over the last several days. She denies other associated or accompanying signs and symptoms. She denies prior similar episodes. She has not identified any additional aggravating or ameliorating factors for her dyspnea. In the emergency room she was noted to have an O2 sat of 89% and markedly increased work of breathing resulting in her being treated with BiPAP. The entirety of her laboratory and x-ray evaluation evaluation was unremarkable. She was subsequently admitted to the hospital for further evaluation and treatment. Hospital Course Hospital Course: This is a 65-year-old female who presented with shortness of breath. She was noted to be hypoxic and had bilateral wheezing on presentation. She was admitted and treated for possible COPD exacerbation. She was placed on BiPAP. Patient was started on IV steroids and scheduled breathing treatments. She was also started on levofloxacin. She did have significant improvement with above treatments. She had very minimal wheezing on day of discharge. She was able to ambulate the hallway on room air without any desaturation or acute issues. Patient will be sent home on Advair and Spiriva. She will also be sent home on DuoNebs. She will be set up with outpatient pulmonology for formal pulmonary function testing. She was also started on low-dose Toprol for her slightly elevated blood pressures. Physical Exam Vital Signs: Temp Pulse Resp BP Pulse Ox 98.3 F 70 24 H 171/85 H 90 L 08/11/19 13:05 08/11/19 13:05 08/11/19 13:05 08/11/19 13:05 08/11/19 13:05 Intake & Output 08/10/19 08/11/19 08/12/19 06:59 06:59 06:59 Intake Total 1770 600 Balance 1770 600 Weight 223 lb 5.252 oz 226 lb 13.69 oz Results Laboratory Results: WBC 8.2 10^3/uL (4.0-10.5) 08/11/19 05:00 RBC 4.43 10^6/uL (3.72-5.28) 08/11/19 05:00 Hgb 13.6 g/dL (12.0-15.5) 08/11/19 05:00 Hct 39.9 % (36.0-47.0) 08/11/19 05:00 MCV 90 fl (80-97) 08/11/19 05:00 MCH 30.8 pg (27.0-33.4) 08/11/19 05:00 MCHC 34.2 g/dL (32.0-36.0) 08/11/19 05:00 RDW 13.5 % (11.5-14.0) 08/11/19 05:00 Plt Count 331 10^3/uL (150-450) 08/11/19 05:00 Lymph % (Auto) 27.5 % (13-45) 08/08/19 17:01 [place] % (Auto) 6.2 % (3-13) 08/08/19 17:01 Eos % (Auto) 4.1 % (0-6) 08/08/19 17:01 Baso % (Auto) 0.6 % (0-2) 08/08/19 17:01 Absolute Neuts (auto) 4.6 10^3/uL (1.7-8.2) 08/08/19 17:01 Absolute Lymphs (auto) 2.0 10^3/uL (0.5-4.7) 08/08/19 17:01 Absolute Monos (auto) 0.5 10^3/uL (0.1-1.4) 08/08/19 17:01 Absolute Eos (auto) 0.3 10^3/uL (0.0-0.6) 08/08/19 17:01 Absolute Basos (auto) 0.0 10^3/uL (0.0-0.2) 08/08/19 17:01 Seg Neutrophils % 61.6 % (42-78) 08/08/19 17:01 Sodium 141.8 mmol/L (137-145) 08/11/19 05:00 Potassium 4.4 mmol/L (3.6-5.0) 08/11/19 05:00 Chloride 103 mmol/L (98-107) 08/11/19 05:00 Carbon Dioxide 27 mmol/L (22-30) 08/11/19 05:00 Anion Gap 12 (5-19) 08/11/19 05:00 BUN 24 mg/dL (7-20) H 08/11/19 05:00 Creatinine 0.84 mg/dL (0.52-1.25) 08/11/19 05:00 Est GFR ( Amer) > 60 (>60) 08/11/19 05:00 Est GFR (MDRD) Non-Af > 60 (>60) 08/11/19 05:00 Glucose 114 mg/dL (75-110) H 08/11/19 05:00 Calcium 9.9 mg/dL (8.4-10.2) 08/11/19 05:00 Total Bilirubin 0.3 mg/dL (0.2-1.3) 08/08/19 17:01 Direct Bilirubin 0.1 mg/dL (0.0-0.4) 08/08/19 17:01 Neonat Total Bilirubin Not Reportable 08/08/19 17:01 Neonat Direct Bilirubin Not Reportable 08/08/19 17:01 Neonat Indirect Bili Not Reportable 08/08/19 17:01 AST 31 U/L (14-36) 08/08/19 17:01 ALT 36 U/L (<35) 08/08/19 17:01 Alkaline Phosphatase 110 U/L (38-126) 08/08/19 17:01 Total Protein 8.3 g/dL (6.3-8.2) H 08/08/19 17:01 Albumin 4.6 g/dL (3.5-5.0) 08/08/19 17:01 TSH 0.27 uIU/mL (0.47-4.68) L 08/09/19 04:11 Free T4 1.10 ng/dL (0.78-2.19) 08/09/19 04:11 Free T3 pg/mL 2.73 pg/mL (2.77-5.27) L 08/09/19 04:11 Impressions: Chest X-Ray 08/08/19 16:31 IMPRESSION: NO ACUTE RADIOGRAPHIC FINDING IN THE CHEST. Lung Scan-VQ NM 11/19/19 17:01 IMPRESSION: NORMAL VENTILATION-PERFUSION LUNG SCAN. NEGATIVE FOR PULMONARY EMBOLI. Stroke Is this a Stroke Patient?: No Acute Heart Failure - Is this a Heart Failure Patient?: No
== END 2019-08-11 14:04 | disposition home or self-care (01) | DRG 189 ==
LOC: ER 16:00 → EH 22:12 → 4W 08-09 17:07
PROVIDERS: ADMIT Emergency Medicine; ATTEND Emergency Medicine
DX: J96.01 Acute respiratory failure with hypoxia (principal); J44.1 Chronic obstructive pulmonary disease with (acute) exacerbation; F17.210 Nicotine dependence, cigarettes, uncomplicated; Z79.51 Long term (current) use of inhaled steroids; Z79.52 Long term (current) use of systemic steroids; Z79.899 Other long term (current) drug therapy
CPT/HCPCS: 36415; 71046; 78582; 80048; 80053; 84439; 84443; 84481; 85025; 85027; 93005; 93010; 94640; 94660; 96374; 99291; A9540; A9567; J1644; J2920; J2930; J3490; J7512; J7620; Q9969

== ENCOUNTER 2020-10-10 18:24 | Emergency (ER) | payer MEDICARE, MEDICAID ==
[2020-10-10 18:40] VITALS: BP 150/98
[2020-10-10] MEDS ORDERED: KETOROLAC TROMETHAMINE INJ/PF 30 MG/1 ML SDV IM ONE (19:09)
[2020-10-10] MEDS ORDERED: METOCLOPRAMIDE HCL INJ/PF 10 MG/2 ML SDV IM ONE (19:09)
--- NOTE | 2020-10-10 19:13 | ER Document Report ---
ED Headache - General Chief Complaint: Headache Stated Complaint: MIGRAINE Time Seen by Provider: 10/10/20 18:58 Mode of Arrival: Ambulatory Information source: Patient TRAVEL OUTSIDE OF THE [place] IN LAST 30 DAYS: No - HPI Patient complains to provider of: Headache Notes: Patient with complaints of headache. The patient states that she has a history of migraine headaches. For the last 2 days she has had a right-sided headache. The headache started in her right ear and has progressed to the right side of her head. Pain is constant but occasionally she gets sharp worsening pain. The patient denies any head injury. She is not on blood thinning medications. She denies fever. She denies neck stiffness. No unilateral numbness, tingling, weakness. The headache is slightly worse with bright light. She states that her headache seems to improve when she lies her head on an ice pack. She denies any blurred or loss of vision. No chest pain or shortness of breath. No fevers. No neck stiffness. No rash. - Related Data Allergies/Adverse Reactions: No Known Allergies Allergy (Verified 10/10/20 18:43) Past Medical History - Social History Smoking Status: Current Every Day Smoker Chew tobacco use (# tins/day): No Frequency of alcohol use: None Drug Abuse: None Family History: DM, Hypertension, Malignancy, Other - Asthma. denies: CAD Patient has homicidal ideation: No - Past Medical History Cardiac Medical History: Denies: Hx Atrial Fibrillation, Hx Congestive Heart Failure, Hx Coronary Artery Disease, Hx DVT, Hx Heart Attack, Hx Hypercholesterolemia, Hx Hypertension, Hx Pulmonary Embolism Pulmonary Medical History: Denies: Hx Asthma, Hx Bronchitis, Hx COPD, Hx Pneumonia, Hx Respiratory Failure Neurological Medical History: Reports: Hx Migraine. Denies: Hx Seizures Endocrine Medical History: Denies: Hx Diabetes Mellitus Type 1, Hx Diabetes Mellitus Type 2, Hx Hyperthyroidism, Hx Hypothyroidism Renal/ Medical History: Denies: Hx Peritoneal Dialysis GI Medical History: Denies: Hx Cirrhosis, Hx Crohn's Disease, Hx Hepatitis, Hx Ulcerative Colitis Musculoskeletal Medical History: Reports Hx Arthritis, Denies Hx Fibromyalgia, Denies Hx Gout Skin Medical History: Denies Hx Eczema, Denies Hx Psoriasis Infectious Medical History: Denies: Hx Hepatitis Past Surgical History: Reports: Hx Cholecystectomy, Hx Gynecologic Surgery - Fibroids removed from uterus - Immunizations Hx Diphtheria, Pertussis, Tetanus Vaccination: No Review of Systems - Review of Systems -: Yes All other systems reviewed and negative Physical Exam - Vital signs Vitals: Temp Pulse Resp BP Pulse Ox 98.6 F 102 H 16 150/98 H 98 10/10/20 18:38 10/10/20 18:38 10/10/20 18:38 10/10/20 18:38 10/10/20 18:38 - Notes Notes: GENERAL: alert, cooperative, nontoxic, no distress. HEAD: normocephalic, atraumatic EYES: conjunctiva pink without discharge, no external redness or swelling. Pupils are equal, round, reactive to light. Extraocular muscles intact bilaterally. EARS: no external swelling, no external redness NOSE: atraumatic, no external swelling MOUTH/THROAT: mucous membranes moist and pink, posterior pharynx without erythema, swelling, exudate. No trismus or drooling. NECK: soft, supple, full range of motion, no meningismus. CHEST: no distress, lungs clear and equal throughout. No wheezing, rales, rhonchi. CARDIAC: regular rate and rhythm, no murmur BACK: full range of motion EXTREMITIES: full range of motion of all extremities. No redness, no swelling. NEURO: alert and oriented x 3, cranial nerves II through XII are grossly intact. Upper and lower extremities are equal throughout. Normal sensation. No focal deficits, full range of motion of all extremities. normal finger to nose. PYSCH: appropriate mood, affect. Patient is cooperative. SKIN: pink, warm, dry, no rash. Course - Re-evaluation Re-evalutation: 10/10/20 19:13 Patient is resting comfortably at this time. Patient is nontoxic-appearing with stable vitals. Patient here with complaints of right-sided headache. The patient states that she has had a headache on the right side for about 2 days now. Pain started in her ear. She denies any fevers. No head injury. No blood thinning medications. She has no sign of subarachnoid hemorrhage, intracranial hemorrhage, meningitis. This was not a sudden onset, thunderclap type headache. This feels like headaches that the patient has had in the past. No blurred or lost vision. She has a nonfocal neuro exam. Overall she looks well. At this point, since the patient states this feels like headache she is had in the past, I do not believe that she requires a significant work-up at this time. Patient will be given a shot of Toradol and Reglan since she drove herself here. She is instructed to take 50 mg of Benadryl when she gets home. She is instructed to rest and follow-up with her primary care doctor or neurology if the headache does not improve. It is possible that this headache could be related to some trigeminal neuralgia. At this point the patient will be given migraine medication and instructions to follow-up as an outpatient. Follow-up sooner for any worsening pain, fever, numbness, tingling, weakness, neck stiffness, or any further concerns. The patient's emergency department workup and current diagnosis were explained to the patient and or family. Follow-up instructions were provided. Medications if prescribed were discussed. Instructions for when to return to the emergency department including specific worrisome symptoms were discussed with the patient and/or family. - Vital Signs Vital signs: Temp Pulse Resp BP Pulse Ox 98.6 F 102 H 16 150/98 H 98 10/10/20 18:38 10/10/20 18:38 10/10/20 18:38 10/10/20 18:38 10/10/20 18:38 - Laboratory Results Critical Laboratory Results Reviewed: No Critical Results - Radiology Results Critical Radiology Results Reviewed: No Critical Results Discharge - Discharge Clinical Impression: Head ache Qualifiers: Headache type: unspecified Headache chronicity pattern: acute headache Intractability: not intractable Qualified Code(s): R51.9 - Headache, unspecified Condition: Stable Disposition: HOME, SELF-CARE Instructions: Headache ([facility]) Additional Instructions: Most,When you get home, take 50 mg of Benadryl by mouth and go to bed. Drink plenty of fluids. Follow-up with your primary care doctor or neurology if you continue to have headaches. Follow-up sooner for worsening pain, fever tingling, weakness, blurry laceration, or any further concerns. Referrals: [facility] [Provider Group] - Follow up as needed STEVE PÉREZ MD [EMERITUS] - Follow up as needed JAMES BENITO PA [NO LOCAL MD] - Follow up as needed DENY CASTANON MD [COMMUNITY BASED STAFF] - Follow up as needed JREISAT,KHALED, MD [NO LOCAL MD] - Follow up as needed
--- OUTSIDE RECORDS SUMMARY | 2020-10-10 20:03 | XMS REPORT ---
:1955 Author Organization [facility] Address [facility] [place] [facility] [place] [address] [place] [id number] Care Team Providers Name Role Phone Unavailable Unavailable Unavailable Allergies, Adverse Reactions, Alerts This patient has no known allergies or adverse reactions. Medications This patient has no known medications. Problems This patient has no known problems. Procedures This patient has no known procedures. Results This patient has no known results. Social History This patient has no known social history. Vital Signs This patient has no known vital signs.
== END 2020-10-10 19:35 | disposition home or self-care (01) ==
LOC: ER 18:24
DX: R51.9 Headache, unspecified (principal); F17.200 Nicotine dependence, unspecified, uncomplicated; Z90.49 Acquired absence of other specified parts of digestive tract
CPT/HCPCS: 99284; 96372; 90471; J1885; J2765